=== PATIENT | male | born 1960 | race Caucasian/White ===

== ENCOUNTER → 2017-04-12 | Outpatient (CLI) | payer OTHER ==
[~2017-04-12] MED LIST: ACIPHEX20 MG PO; ADVAIR 500/501 E1 INH; ADVAIR DISKUS 51 DSK IH; AMBIEN CR12.5 MG PO; ATIVAN0.5 MG PO; CLINDAMYCIN HC300 MG PO; COREG25 MG PO; DELTASONE10 MG PO; DUONEB 3 MG/3 ML3 M1 INH; FENTANYL TR75 MCG/HR TD; HYDROCODONE BIT1 T11 PO; KEFLEX250 MG PO; LANTUS100 U/ML SC; LYRICA300 MG PO; MORPHINE SULFAT60 M2 PO; NOVOLIN 70/30 701 EA SC; REQUIP0.5 MG PO; SINGULAIR10 MG PO; SOMA350 MG PO; SPIRIVA18 MCG IH; TRAMADOL HCL50 MG PO; VICODIN 500 MG-1 TAB PO; XANAX0.5 MG PO; ZITHROMAX250 MG PO; Zofran4 MG PO
[2017-04-12 16:48] LABS: BASO % 0.1 % (0.0-1.0); HEMATOCRIT 37.6 % (42.0-52.0); HEMOGLOBIN 13.2 g/dl (14.0-18.0); LYMPH # 1.8 10*3/uL (1.3-4.4); LYMPH % 17.9 % (27.0-41.0); MEAN CELL VOLUME 98.2 fl (80.0-94.0); MEAN CORPUSCULAR HGB 34.5 pg (27.0-31.0); MEAN CORPUSCULAR HGB CONC 35.1 g/dl (33.0-37.0); MEAN PLATELET VOLUME 10.6 fl (9.6-12.3); MONO # 0.9 10*3/uL (0.1-1.0); MONO % 8.7 % (3.0-9.0); NEUT # 7.4 10*3/uL (2.3-7.9); PLATELET COUNT AUTOMATED 194 10*3/uL (130-400); RED BLOOD COUNT 3.83 10*6/uL (4.50-5.90); RED CELL DISTRI WIDTH 12.1 % (0-14.5); WHITE BLOOD COUNT 10.1 10*3/uL (4.8-10.8)
[2017-04-12 17:05] LABS: ALBUMIN 4.2 gm/dl (3.1-4.5); ALKALINE PHOSPHATASE 132 U/L (45-117); BUN 6 mg/dl (7-24); CHLORIDE 107 mmol/L (98-107); CREATININE 0.84 mg/dL (0.70-1.30); POTASSIUM 3.8 mmol/L (3.5-5.1); SGOT/AST 34 IU/L (3-35); SGPT/ALT 26 U/L (12-78); SODIUM 138 mmol/L (136-145); TOTAL PROTEIN 6.8 gm/dL (6.4-8.2)
== END | disposition home or self-care (01) ==
LOC: LAB 16:09
PROVIDERS: Internal Medicine Rheumatology
DX: Z51.81 Encounter for therapeutic drug level monitoring (principal); M05.79 Rheumatoid arthritis with rheumatoid factor of multiple sites without organ or systems involvement; D72.819 Decreased white blood cell count, unspecified; Z79.899 Other long term (current) drug therapy

== ENCOUNTER 2017-04-19 18:49 | Emergency (ER) | payer OTHER ==
[~2017-04-19] VITALS: Wt 73.0 kg
[2017-04-19 19:00] VITALS: BP 128/74
[2017-04-19] MEDS ORDERED: CYCLOBENZAPRINE10 MG PO (20:34)
== END 2017-04-19 21:54 | disposition home or self-care (01) ==
LOC: ED 18:49
DX: M54.5 Low back pain (principal); M06.9 Rheumatoid arthritis, unspecified; Z88.8 Allergy status to other drugs, medicaments and biological substances; Z79.899 Other long term (current) drug therapy

== ENCOUNTER 2017-04-24 03:14 | Emergency (ER) | payer OTHER ==
[~2017-04-24] VITALS: Ht 177.8 cm; Wt 74.8 kg
[~2017-04-24 03:14] MED LIST changes: +CYCLOBENZAPRINE10 MG PO
[2017-04-24 03:21] VITALS: BP 125/85
[2017-04-24 04:13] LABS: BASO % 0.2 % (0.0-1.0); EOS # 0.1 10*3/uL (0.0-0.4); EOS % 1.2 % (1.0-4.0); HEMATOCRIT 33.5 % (42.0-52.0); HEMOGLOBIN 11.2 g/dl (14.0-18.0); LYMPH # 1.6 10*3/uL (1.3-4.4); LYMPH % 31.7 % (27.0-41.0); MEAN CELL VOLUME 103.1 fl (80.0-94.0); MEAN CORPUSCULAR HGB 34.5 pg (27.0-31.0); MEAN CORPUSCULAR HGB CONC 33.4 g/dl (33.0-37.0); MEAN PLATELET VOLUME 9.8 fl (9.6-12.3); MONO # 0.6 10*3/uL (0.1-1.0); MONO % 12.1 % (3.0-9.0); NEUT # 2.7 10*3/uL (2.3-7.9); NEUT % 54.6 % (47.0-73.0); PLATELET COUNT AUTOMATED 171 10*3/uL (130-400); RED BLOOD COUNT 3.25 10*6/uL (4.50-5.90); WHITE BLOOD COUNT 4.9 10*3/uL (4.8-10.8)
[2017-04-24 04:24] LABS: ACT PARTIAL THROMBO TIME 49.2 SECONDS (20.8-31.5)
[2017-04-24 04:30] LABS: ALBUMIN 3.2 gm/dl (3.1-4.5); ALKALINE PHOSPHATASE 121 U/L (45-117); BUN 9 mg/dl (7-24); CHLORIDE 102 mmol/L (98-107); CREATININE 0.75 mg/dL (0.70-1.30); LIPASE 101 U/L (73-393); MAGNESIUM 2.1 mg/dL (1.5-2.1); POTASSIUM 3.9 mmol/L (3.5-5.1); SGOT/AST 15 IU/L (3-35); SGPT/ALT 22 U/L (12-78); SODIUM 136 mmol/L (136-145); TOTAL PROTEIN 5.7 gm/dL (6.4-8.2)
[2017-04-24 04:31] LABS: TROPONIN I < 0.015 ng/ml (<0.045)
[2017-04-24] MEDS ORDERED: TYLENOL W/CODEI1 TA4 PO (05:41)
== END 2017-04-24 05:58 | disposition home or self-care (01) ==
LOC: ED 03:14
PROVIDERS: Emergency Medicine
DX: R10.9 Unspecified abdominal pain (principal); Z88.8 Allergy status to other drugs, medicaments and biological substances

== ENCOUNTER 2019-03-04 19:34 | Emergency (ER) | payer OTHER ==
[~2019-03-04] VITALS: Ht 170.1 cm; Wt 69.4 kg
[~2019-03-04 19:34] MED LIST changes: +TYLENOL W/CODEI1 TA4 PO
[2019-03-04 19:36] VITALS: BP 161/87
[2019-03-04] MEDS ORDERED: KEFLEX500 M1 PO (19:51)
== END 2019-03-04 21:00 | disposition home or self-care (01) ==
LOC: ED 19:34
DX: L02.01 Cutaneous abscess of face (principal); Z79.899 Other long term (current) drug therapy; Z88.8 Allergy status to other drugs, medicaments and biological substances